=== PATIENT | female | born 1990 | race Caucasian/White ===

== ENCOUNTER 2017-06-28 00:49 | Emergency (ER) | payer BC, OTHER ==
[~2017-06-28] VITALS: Ht 172.7 cm; Wt 136.1 kg
[2017-06-28 00:55] VITALS: BP 160/84
[2017-06-28] MEDS ORDERED: METO100T11 PO (01:13)
[2017-06-28] MEDS ORDERED: ACETAMINOPHEN 500 MG TABLET PO ONE ×2 (01:15→01:17)
--- NOTE | 2017-07-01 08:51 | ED.ADGEN ---
Past History Past Medical History: Hypertension Past Surgical History: Other Alcohol Use: None Drug Use: None Adult General Chief Complaint Chief Complaint Body aches, fever HPI HPI Patient is a 26-year-old male presents with acute onset fever, chills, body aches, starting 5 hours prior to ED arrival. Patient had home temperature 103. Patient denies headache, rash, vomiting, nasal congestion, sore throat, neck stiffness, chest pain, shortness of breath, cough, abdominal pain and diarrhea. Denies dysuria, tick bites or recent mosquito bites. No other acute symptoms or complaints. Patient denies known infectious exposure. Review of Systems Review of Systems Review of symptomsas per history of present illness. All other review symptoms are negative. Current Medications Current Medications Current Medications Medications (Trade) Dose Ordered Sig/Davina Start Time Stop Time Status Last Admin Dose Admin Acetaminophen (Tylenol) 500 mg STK-MED ONCE 06/28/17 01:17 06/28/17 01:31 DC Allergies Allergies Allergies Coded Allergies Type Severity Reaction Last Updated Verified No Known Drug Allergies 06/28/17 No Physical Exam Physical Exam Constitutional: Well developed, well nourished, uncomfortable appearing, non- toxic appearance. [] HENT: Normocephalic, atraumatic, bilateral external ears normal, oropharynx moist, no oral exudates, nose normal. [] Eyes: PERRLA, EOMI, conjunctiva normal, no discharge. [] Neck: Normal range of motion, no tenderness, supple, no stridor. [] Cardiovascular:Heart rate regular rhythm, no murmur [] Lungs & Thorax: Bilateral breath sounds clear to auscultation [] Abdomen: Bowel sounds normal, soft, no tenderness, no masses, no pulsatile masses. [] Skin: Warm, dry, no erythema, no rash. [] Back: No tenderness, no CVA tenderness. [] Extremities: No tenderness, no cyanosis, no clubbing, ROM intact, no edema. [] Neurologic: Alert and oriented X 3, normal motor function, normal sensory function, no focal deficits noted. [] Psychologic: Affect normal, judgement normal, mood normal. [] Current Patient Data Vital Signs Vital Signs Date Time Temp Pulse Resp B/P (MAP) Pulse Ox O2 Delivery O2 Flow Rate FiO2 06/28/17 00:55 101.8 109 20 160/84 (109) 96 Room Air EKG EKG [] Radiology/Procedures Radiology/Procedures [] Course & Med Decision Making Course & Med Decision Making Pertinent Labs and Imaging studies reviewed. (See chart for details) [Patient's with myalgias fever and benign physical exam. Symptoms are improved in the ED. Recommend supportive care, watchful waiting with PCP follow-up. Return precautions reviewed. Patient verbalizes understanding and agreement prior to departure.] Final Impression Final Impression [1. Acute febrile illness 2. Myalgias] Problems: Dragon Disclaimer Dragon Disclaimer This electronic medical record was generated, in whole or in part, using a voice recognition dictation system. PRESTON BATEMAN DO Jul 01, 2017 08:51
== END 2017-06-28 01:30 | disposition home or self-care (01) ==
LOC: ER 00:49
DX: R50.9 Fever, unspecified (principal); M79.1 Myalgia; I10 Essential (primary) hypertension
CPT/HCPCS: 99282